=== PATIENT | female | born 1990 | race Caucasian/White ===

== ENCOUNTER 2017-04-09 02:11 | Emergency (ER) | payer OTHER ==
--- NOTE | 2017-04-09 03:11 | ED ---
Kimberly Ritter Michael, scribed for Rowdy Vazquez MD on 04/09/17 at 0238 . HPI Chest Pain - HPI Summary HPI Summary: 26 y/o female comes to the ED presenting with constant CP that started today while the patient was at rest. She reports that the CP is aggravated with exhaling. She also c/o epigastric abd pain. Both the abd pain and CP are described as burning. Currently the pt is still experiencing the abd pain and CP , but each has alleviated slightly since arriving to the ED. The pt reports that she was using ant spray without ventilation and became dizzy and nausea yesterday. Currently she denies nausea and dizziness. - History of Current Complaint Chief Complaint: EDAbdPain Hx Obtained From: Patient, Medical Records Onset/Duration: Started Hours Ago, Still Present Timing: Constant Initial Severity: Moderate Current Severity: Mild Pain Intensity: 6 Pain Scale Used: 0-10 Numeric Chest Pain Location: Mid Sternal Chest Pain Radiates: Yes Chest Pain Radiates To:: Epigastric Character: Burning Aggravating Factor(s): Nothing Alleviating Factor(s): Nothing Associated Signs and Symptoms: Positive: Chest Pain, Abdominal Pain - Allergy/Home Medications Allergies/Adverse Reactions: Allergies Allergy/AdvReac Type Severity Reaction Status Date / Time No Known Allergies Allergy Verified 02/14/16 09:10 PMH/Surg Hx/FS Hx/Imm Hx Endocrine/Hematology History: Denies: Hx Diabetes, Hx Thyroid Disease Cardiovascular History: Denies: Hx Hypertension Respiratory History: Denies: Hx Asthma, Hx Chronic Obstructive Pulmonary Disease (COPD) GI History: Denies: Hx Ulcer - Surgical History Surgery Procedure, Year, and Place: wisdom teeth extracted Infectious Disease History: No Infectious Disease History: Denies: Hx Hepatitis, Hx Human Immunodeficiency Virus (HIV), History Other Infectious Disease, Traveled Outside the [place] in Last 30 Days - Family History Known Family History: Positive: Unknown Family History: pt does not recall FHx - Social History Occupation: Student Lives: Alone Alcohol Use: None Substance Use Type: Reports: None Smoking Status (MU): Never Smoked Tobacco Review of Systems Positive: Chest Pain Positive: Abdominal Pain. Negative: Nausea Neurological: Negative - dizziness All Other Systems Reviewed And Are Negative: Yes Physical Exam Triage Information Reviewed: Yes Vital Signs On Initial Exam: Initial Vitals Temp Pulse Resp BP Pulse Ox 99 F 82 16 144/96 99 04/09/17 02:18 04/09/17 02:18 04/09/17 02:18 04/09/17 02:18 04/09/17 02:18 Vital Signs Reviewed: Yes Appearance: Positive: Well-Appearing, No Pain Distress Skin: Positive: Warm Head/Face: Positive: Normal Head/Face Inspection Eyes: Positive: STEFFANIE ENT: Positive: Hearing grossly normal Neck: Positive: Supple Respiratory/Lung Sounds: Positive: Clear to Auscultation, Breath Sounds Present Cardiovascular: Positive: RRR Abdomen Description: Positive: Nontender, Soft Bowel Sounds: Positive: Present Musculoskeletal: Positive: Strength/ROM Intact Neurological: Positive: Alert, Oriented to Person Place, Time - Gricelda Coma Scale Coma Scale Total: 15 Diagnostics - Vital Signs Vital Signs Temp Pulse Resp BP Pulse Ox 04/09/17 02:18 99 F 82 16 144/96 99 - Laboratory Lab Statement: Any lab studies that have been ordered have been reviewed, and results considered in the medical decision making process. - Radiology CXR Xray Interpretation: No Acute Changes Radiology Interpretation Completed By: ED Physician - EKG [id number] EKG Rhythm: Sinus Rhythm - 71 ST Segment: Normal Ectopy: None Chest Pain Course/Dx - Diagnoses Provider Diagnoses: Chest pain, Anxiety Discharge - Discharge Plan Condition: Stable Disposition: HOME Patient Education Materials: Chest Pain (ED), Anxiety (ED) [facility]errals[facility] [[facility] - Additional Instructions: Please follow up with [facility] within the next 2-3 days. The documentation as recorded by the Kimberly sandoval Michael accurately reflects the service I personally performed and the decisions made by , Rowdy Vazquez MD.
[2017-04-09 03:31] VITALS: BP 122/74
--- NOTE | 2017-04-09 07:39 | RAD ---
INDICATION: Chest pain COMPARISON: None TECHNIQUE: PA and lateral dual-energy views were obtained. FINDINGS: Bones/Soft Tissues: There are no acute bony findings. Cardiomediastinal: The cardiomediastinal silhouette is normal. Lungs: There are no infiltrates. Pleura: There are no pleural effusions. Other: None IMPRESSION: NORMAL CHEST.
== END 2017-04-09 03:33 | disposition home or self-care (01) ==
LOC: ED 02:11
DX: R07.9 Chest pain, unspecified (principal); R42 Dizziness and giddiness; R11.0 Nausea; R10.9 Unspecified abdominal pain; F41.9 Anxiety disorder, unspecified
CPT/HCPCS: 71020; 93005; 99282

== ENCOUNTER 2020-01-22 21:08 | Emergency (ER) | payer OTHER ==
[2020-01-22 23:41] LABS: ABS Eosinophils 0.1 10^3/ul (0-0.6); ABS Monocytes 0.5 10^3/ul (0-0.8); ABS Neutrophils 3.7 10^3/ul (1.5-7.7); Eosinophil % 1.3 %; Hematocrit 35 % (35-47); Hemoglobin 12.1 g/dL (12.0-16.0); Lymphocyte % 31.2 %; Mean Corpuscular HGB Conc 35 g/dL (31-36); Mean Corpuscular Hemoglobin 32 pg (27-31); Mean Corpuscular Volume 92 fL (80-97); Mean Platelet Volume 7.6 fL (7.4-10.4); Platelet Count 198 10^3/uL (150-450); Red Blood Count 3.79 10^6 /uL (3.70-4.87); Red Cell Distribution Width 13 % (10-15); White Blood Count 6.3 10^3/uL (3.5-10.8)
--- NOTE | 2020-01-22 23:47 | ED ---
- HPI Summary HPI Summary: Patient with history of 33 weeks followed by [facility] in [place] complains of decreased movement starting yesterday, episodes of lightheadedness. Denies fever, cough, sore throat, CP, SOB, N/V/V abdominal pain, change in urine, change in BM, vaginal symptoms. 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 Ultrasound 1 week ago which was normal. Denies any complications up to this point. . Naproxen Sodium [Aleve] 2 tab PO PRN 02/14/16 [History] hydrOXYzine HCL TAB* [Atarax TAB 50 MG *] 50 mg PO TID PRN #30 tab 02/14/16 [Rx] - History of Current Complaint Chief Complaint: EDOBProblems Stated Complaint: 33 WKS PREG/DIZZY PER PT Time Seen by Provider: 01/22/20 22:55 Hx Obtained From: Patient Onset/Duration: Started Hours Ago Timing: Intermittent Current Severity: None Pain Intensity: 0 Location of Pain: None - Allergies/Home Medications Allergies/Adverse Reactions: Allergies Allergy/AdvReac Type Severity Reaction Status Date / Time No Known Allergies Allergy Verified 01/22/20 21:13 Home Medications: Home Medications Naproxen Sodium [Aleve] 2 tab PO PRN 02/14/16 [History] hydrOXYzine HCL TAB* [Atarax TAB 50 MG *] 50 mg PO TID PRN #30 tab 02/14/16 [Rx] PMH/Surg Hx/FS Hx/Imm Hx Endocrine/Hematology History: Denies: Hx Diabetes, Hx Thyroid Disease Cardiovascular History: Denies: Hx Hypertension Respiratory History: Denies: Hx Asthma, Hx Chronic Obstructive Pulmonary Disease (COPD) GI History: Denies: Hx Ulcer History: Denies: Hx Dialysis Sensory History: Denies: Hx Eye Prosthesis Opthamlomology History: Denies: Hx Legally Blind EENT History: Denies: Hx Deafness Neurological History: Denies: Hx Dementia - Surgical History Surgery Procedure, Year, and Place: wisdom teeth extracted Infectious Disease History: No Infectious Disease History: Denies: Hx Hepatitis, Hx Human Immunodeficiency Virus (HIV), History Other Infectious Disease, Traveled Outside the [place] in Last 30 Days - Family History Known Family History: Positive: Unknown, Non-Contributory Family History: pt does not recall FHx - Social History Alcohol Use: None Substance Use Type: Reports: None Hx Tobacco Use: No Smoking Status (MU): Never Smoked Tobacco Review of Systems Constitutional: Negative Eyes: Negative ENT: Negative Cardiovascular: Negative Respiratory: Negative Gastrointestinal: Negative Genitourinary: Negative Musculoskeletal: Negative Skin: Negative Neurological/Mental Status: Negative Psychological: Normal All Other Systems Reviewed And Are Negative: Yes Physical Exam - Physical Exam Triage Information Reviewed: Yes Vital Signs Reviewed: Yes Appearance: Positive: Well-Appearing Skin: Positive: Warm Head/Face: Positive: Normal Head/Face Inspection Eyes: Positive: Normal Neck: Positive: Supple Respiratory/Lung Sounds: Positive: Clear to Auscultation Cardiovascular: Positive: Normal Abdomen Description: Positive: Nontender Musculoskeletal: Positive: Normal Neurological: Positive: Normal Psychiatric: Positive: Normal AVPU Assessment: Alert - Gricelda Coma Scale Eye: 4 - Spontaneous Motor: 6 - Obeys Commands Verbal: 5 - Oriented Coma Scale Total: 15 Procedures - Sedation Patient Received Moderate/Deep Sedation with Procedure: No Diagnostics - Vital Signs Vital Signs Temp Pulse Resp BP Pulse Ox 01/22/20 21:11 98.0 F 121 17 138/101 98 - Laboratory Result Diagrams: 01/22/20 23:33 01/22/20 23:33 Lab Statement: Any lab studies that have been ordered have been reviewed, and results considered in the medical decision making process. Course/Dx - Course Course Of Treatment: Patient with history of 33 weeks followed by [facility] in [place] complains of decreased movement starting yesterday, episodes of lightheadedness. Denies fever, cough, sore throat, CP, SOB, N/V/V abdominal pain, change in urine, change in BM, vaginal symptoms. 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 Ultrasound 1 week ago which was normal. Denies any complications up to this point. . Vital signs within normal limits. heart tones are 138 within normal limits. Patient states she does notice some movement her in ED. Labs unremarkable. Patient advised to follow-up with her TUBE REPAIRER's in [place] for further advice. Urine is unremarkable. - Diagnoses Provider Diagnoses: Decreased movement, Lightheadedness Discharge ED - Sign-Out/Discharge Documenting (check all that apply): Patient Departure - Discharge Plan Condition: Stable Disposition: HOME Referrals: No Primary Care Phys,[facility] [Primary Care Provider] - Additional Instructions: Call your TUBE REPAIRER tomorrow to discuss current condition with them. Return to the ED for any new or worsening symptoms. - Billing Disposition and Condition Condition: STABLE Disposition: Home - Attestation Statements Provider Attestation: the patient was seen by the midlevel provider, it was determined by them that it was not necessary for me to see the patient, I was available for consult during the patient's visit in the ED. I did not establish and patient-physician relationship. The chart however has been reviewed and I am signing in an administrative capacity.
[2020-01-22 23:57] LABS: Albumin/Globulin Ratio 1.4 (1-3); BUN/Creatinine Ratio 10.3 (8-20); C Reactive Protein 4.02 mg/L (<8.01); Calcium 9.3 mg/dL (8.6-10.3); EGFR African American 107.2 (>60); EGFR Non-African American 88.6 (>60); Globulin 2.9 g/dL (2-4); Potassium 3.6 mmol/L (3.5-5.0); Total Bilirubin 0.4 mg/dL (0.2-1.0); Total Protein 6.9 g/dL (6.4-8.9)
[2020-01-23 01:02] LABS: Urine Appearance Clear; Urine Bilirubin Negative (Negative); Urine Blood Negative (Negative); Urine Color Colorless; Urine Glucose Negative (Negative); Urine Ketones Negative (Negative); Urine Nitrite Negative (Negative); Urine Protein Negative (Negative); Urine Specific Gravity 1.002 (1.010-1.030); Urine Urobilinogen Negative (Negative)
[2020-01-23 01:37] VITALS: BP 117/78
== END 2020-01-23 01:30 | disposition home or self-care (01) ==
LOC: ED 21:08
DX: O36.8130 Decreased fetal movements, third trimester, not applicable or unspecified (principal); R42 Dizziness and giddiness; Z3A.33 33 weeks gestation of pregnancy
CPT/HCPCS: 36415; 80053; 81003; 85025; 86140; 99282